=== PATIENT | male | born 1950 | race Caucasian/White ===

== ENCOUNTER 2019-12-14 07:16 | Outpatient (CLI) | payer MEDICARE, OTHER ==
[2019-12-14 09:58] LABS: Hemoglobin 13.6 g/dL (14.0-18.0); Mean Corpuscular HGB CONC 33.4 g/dL (32.0-36.0); Mean Corpuscular Hemoglobin 31.8 pg (27.0-31.0); Mean Corpuscular Volume 95.1 fL (78.0-98.0); Mean Platelet Volume 7.4 fL (7.4-10.4); Platelet Count 176 thou/uL (130-400); RBC Distribution Width 12.5 % (11.5-14.5); Red Blood Cell (RBC) Count 4.29 mill/uL (4.70-6.10); White Blood Cell (WBC) Count 4.3 thou/uL (4.8-10.8)
[2019-12-14 10:13] LABS: Bacteria/HPF 1+ HPF (None Seen); Bilirubin Negative (Negative); Blood, Urine Negative (Negative); Clarity Clear (Clear); Glucose, Urine (Dipstick) Normal (Negative); Leukocyte 75 Leu/uL (Negative); Nitrite Negative (Negative); Protein, Urine (Dipstick) Negative (Neg-Trace); RBC/HPF 0-3 HPF (0-3); Squamous Epithelial None Seen HPF (0-3); Urobilinogen Normal mg/dL (Less than 2)
[2019-12-14 10:26] LABS: Anion Gap 12 mmol/L (10-20); BUN (Urea Nitrogen) 25 mg/dL (8.4-25.7); Calc. Creatinine Clearance 0 mL/min (70-130); Calcium 9.3 mg/dL (7.8-10.44); Carbon Dioxide 26 mmol/L (23-31); Chloride 105 mmol/L (98-107); Estimated GFR-MDRD 51; Glucose 177 mg/dL (80-115); Potassium 3.7 mmol/L (3.5-5.1); Sodium 139 mmol/L (136-145)
--- NOTE | 2019-12-14 23:30 | EKG ---
Test Reason : Blood Pressure : / mmHG Vent. Rate : 067 BPM Atrial Rate : 067 BPM P-R Int : 270 ms QRS Dur : 096 ms QT Int : 390 ms P-R-T Axes : 009 032 061 degrees QTc Int : 412 ms Sinus rhythm with 1st degree A-V block Cannot rule out Inferior infarct , age undetermined Cannot rule out Anterior infarct , age undetermined Abnormal ECG When compared with ECG of 17-MAY-2012 07:44, Sinus rhythm has replaced Atrial fibrillation T wave inversion now evident in Anterior leads Confirmed by Daron GERBER ([id number]) on 12/14/2019 11:29:56 PM Referred By: SRINIVASAN Confirmed By:Daron GERBER
== END 2019-12-14 07:17 | disposition home or self-care (01) ==
LOC: LABBT 07:16
PROVIDERS: ATTEND Urology
DX: Z01.818 Encounter for other preprocedural examination (principal); T19.1XXA Foreign body in bladder, initial encounter; N21.0 Calculus in bladder
CPT/HCPCS: 80048; 81001; 85027; 87077; 87086; 87186; 93005; 93010

== ENCOUNTER 2019-12-22 05:53 | Day surgery (SDC) | payer MEDICARE, OTHER ==
[2019-12-14 09:07] VITALS: BMI 31.5
[2019-12-22] MEDS ORDERED: Midazolam HCl 2 mg/2 ml Vial ONE (06:21)
[2019-12-22] MEDS ORDERED: Fentanyl 100 MCG/2 ML VIAL ONE ×2 (06:21→06:36)
[2019-12-22] MEDS ORDERED: Levofloxacin 500 mg/D5W 100 ml Premix Bag ONE (06:34)
[2019-12-22] MEDS ORDERED: Iothalamate Meglumine 60% 50 ML VIAL FS ONE (07:39)
[2019-12-22] MEDS ORDERED: Ketorolac Tromethamine 30 MG/ML VIAL ONE (09:09)
[2019-12-22] MEDS ORDERED: Phenazopyridine HCl 97.5 MG TABLET ONE (09:09)
[2019-12-22] MEDS ORDERED: Oxybutynin 5 MG TAB ONE (09:09)
[2019-12-22] MEDS ORDERED: PHENYLEPHRINE-NS 100 MCG/ML 10 ML SYRINGE ONE (10:01)
[2019-12-22] MEDS ORDERED: PROPOFOL 200 MG/20 ML VIAL ONE (10:01)
[2019-12-22] MEDS ORDERED: Dexamethasone 20 MG/5 ML VIAL ONE (10:01)
[2019-12-22] MEDS ORDERED: Lidocaine 1% PF 5 ML VIAL ONE (10:01)
[2019-12-22] MEDS ORDERED: Ondansetron PF 4 MG/2 ML Vial ONE (10:01)
--- NOTE | 2019-12-22 13:27 | OP ---
DATE OF PROCEDURE: 12/22/2019 PREOPERATIVE DIAGNOSIS: Bladder stone forming on foreign body. POSTOPERATIVE DIAGNOSIS: Bladder stone forming on foreign body. PROCEDURES PERFORMED: Cystoscopy with laser of small bladder stone, removal of foreign body, cystogram. ANESTHESIA: General. COMPLICATIONS: None. ESTIMATED BLOOD LOSS: Minimal. SPECIMEN: Two Hem-o-celio clips from bladder. DESCRIPTION OF PROCEDURE: After informed consent, the patient was taken to the operating room, transferred to the table on his own power. Anesthesia was established. A time-out was performed showing the correct patient, site, and procedure. Preoperative antibiotics were administered. He was prepped and draped in the lithotomy position. We began by performing cystoscopy using the 22-Turkish rigid cystoscope. I noted that there was no coaptation of his urinary sphincter. I then entered the bladder neck noting the Hem-o-celio clip with stone forming on it easily visible. The bladder was systematically examined noting no mucosal abnormalities. I performed a cystogram showing about a 350 mL capacity bladder. I then used a 1000 micron laser fiber to remove the stone from the Hem-o-celio clip and to remove some of the mucosa overlying it to allow easy removal. The Hem-o-celio clip was then removed, at which point, I noted a second clip slightly medial to this one, which was also trimmed out and removed. I then used the laser to ensure hemostasis. The bladder was reinspected noting no further bleeding or evidence of foreign body. Both ureteral orifices were well away from the area of removal of foreign body. The scope was then withdrawn. The patient was awoken from anesthesia, transferred back to his hospital bed and taken to the PACU in stable condition, where he will discharge home upon recovery. Job ID: [id number]
--- NOTE | 2019-12-22 13:42 | RAD ---
EXAM: XR IVP Retrograde PROVIDED CLINICAL HISTORY: Foreign body COMPARISON: None FINDINGS/IMPRESSION: Single intraoperative fluoroscopic image of the abdomen is provided. The right abdomen and pelvis are excluded from view. There is contrast seen in a partially distended urinary bladder. No radiopaque or metallic foreign body is seen on this examination. Dense contrast is seen in the urinary bladder w hich would obscure a foreign body within the urinary bladder. Correlation with intraoperative findings is recommended. Fluoroscopy: Time-2 seconds Dose-1.77 mGy
== END 2019-12-22 10:20 | disposition home or self-care (01) ==
LOC: SDC 05:53
PROVIDERS: ATTEND Urology
PROC: 0TCB8ZZ Extirpation of Matter from Bladder, Via Natural or Artificial Opening Endoscopic (ICD-10-PCS; principal; 2019-12-22)
DX: N21.0 Calculus in bladder (principal); N32.0 Bladder-neck obstruction; I10 Essential (primary) hypertension; E78.00 Pure hypercholesterolemia, unspecified; E11.9 Type 2 diabetes mellitus without complications; N39.3 Stress incontinence (female) (male); Z79.82 Long term (current) use of aspirin; Z79.84 Long term (current) use of oral hypoglycemic drugs; Z79.899 Other long term (current) drug therapy; Z90.79 Acquired absence of other genital organ(s)
CPT/HCPCS: 74420; 88300; J1100; J1885; J1956; J2001; J2250; J2405; J2704; J3010

== ENCOUNTER 2020-01-13 09:22 | Outpatient (CLI) | payer MEDICARE, OTHER ==
[2020-01-13 12:36] LABS: Hemoglobin 12.8 g/dL (14.0-18.0); Mean Corpuscular Hemoglobin 32.2 pg (27.0-31.0); Mean Corpuscular Volume 97.6 fL (78.0-98.0); Mean Platelet Volume 7.4 fL (7.4-10.4); Platelet Count 172 thou/uL (130-400); RBC Distribution Width 12.4 % (11.5-14.5); Red Blood Cell (RBC) Count 3.99 mill/uL (4.70-6.10)
[2020-01-13 12:41] LABS: Bacteria/HPF None Seen HPF (None Seen); Bilirubin Negative (Negative); Blood, Urine Negative (Negative); Clarity Clear (Clear); Glucose, Urine (Dipstick) 500 mg/dL (Negative); Leukocyte 75 Leu/uL (Negative); Nitrite Negative (Negative); Protein, Urine (Dipstick) Negative (Neg-Trace); RBC/HPF 0-3 HPF (0-3); Squamous Epithelial 0-3 HPF (0-3); Urobilinogen Normal mg/dL (Less than 2)
[2020-01-13 12:58] LABS: Anion Gap 9 mmol/L (10-20); BUN (Urea Nitrogen) 20 mg/dL (8.4-25.7); Calc. Creatinine Clearance 0 mL/min (70-130); Calcium 8.7 mg/dL (7.8-10.44); Carbon Dioxide 28 mmol/L (23-31); Chloride 104 mmol/L (98-107); Estimated GFR-MDRD 55; Glucose 202 mg/dL (83-110); Potassium 4.1 mmol/L (3.5-5.1); Sodium 137 mmol/L (136-145)
--- NOTE | 2020-01-13 14:42 | EKG ---
Test Reason : Blood Pressure : / mmHG Vent. Rate : 064 BPM Atrial Rate : 064 BPM P-R Int : 272 ms QRS Dur : 094 ms QT Int : 410 ms P-R-T Axes : 034 026 040 degrees QTc Int : 422 ms Sinus rhythm with 1st degree A-V block Cannot rule out Inferior infarct (cited on or before 14-DEC-2019) Nonspecific ST-T changes minimal Abnormal ECG When compared with ECG of 14-DEC-2019 09:29, T wave inversion no longer evident in Anterior leads Confirmed by DR. Sabra VILLAVICENCIO ([id number]) on 01/13/2020 2:42:31 PM Referred By: SRINIVASAN Confirmed By:DR. Sabra VILLAVICENCIO
== END 2020-01-13 09:23 | disposition home or self-care (01) ==
LOC: LABBT 09:22
PROVIDERS: ATTEND Urology
DX: Z01.818 Encounter for other preprocedural examination (principal); C61 Malignant neoplasm of prostate; N39.3 Stress incontinence (female) (male)
CPT/HCPCS: 80048; 81001; 85027; 87086; 93005; 93010

== ENCOUNTER 2020-01-19 09:37 | Day surgery (SDC) | payer MEDICARE, OTHER ==
[2020-01-13 11:48] VITALS: BMI 32.3
[2020-01-19] MEDS ORDERED: Dexamethasone 20 MG/5 ML VIAL ONE (09:56)
[2020-01-19] MEDS ORDERED: Succinylcholine Chloride 20 MG/ML 10 ml SYRINGE FS ONE (09:56)
[2020-01-19] MEDS ORDERED: Ondansetron PF 4 MG/2 ML Vial ONE (09:56)
[2020-01-19] MEDS ORDERED: Esmolol 100 MG/10 ML VIAL ONE (09:56)
[2020-01-19] MEDS ORDERED: Lidocaine 1% PF 5 ML VIAL ONE (09:56)
[2020-01-19] MEDS ORDERED: PROPOFOL 200 MG/20 ML VIAL ONE (09:56)
[2020-01-19] MEDS ORDERED: Rocuronium Bromide 10 MG/ML (10ML VIAL) ONE (09:56)
[2020-01-19] MEDS ORDERED: CEFAZOLIN 2 GM in Premix Bag 1 BAG IVPB SCH (10:45)
[2020-01-19] MEDS ORDERED: Gentamicin Sulfate 300 MG in Sodium Chloride 0.9% 100 ML IVPB SCH (10:45)
[2020-01-19] MEDS ORDERED: Bacitracin Zinc Ointment 30 gm TUBE ONE (12:38)
[2020-01-19] MEDS ORDERED: Bupivacaine 0.25% HCL 30 ML VIAL ONE (12:38)
[2020-01-19] MEDS ORDERED: Midazolam HCl 2 mg/2 ml Vial ONE (12:47)
[2020-01-19] MEDS ORDERED: Fentanyl 100 MCG/2 ML VIAL ONE (12:47)
[2020-01-19] MEDS ORDERED: HYDROcodone/Acetaminophen 5/325 mg Tablet ONE (16:40)
--- NOTE | 2020-01-19 16:55 | OP ---
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 POSTOPERATIVE DIAGNOSIS: Stress urinary incontinence after prostatectomy. PROCEDURE PERFORMED: Placement of artificial urinary sphincter. ANESTHESIA: General. COMPLICATIONS: None. BLOOD LOSS: 100 mL. SPECIMEN: None. DESCRIPTION OF PROCEDURE: After informed consent, the patient was taken to the operating room and transferred to the table under his own power. Anesthesia was established. Time-out was performed showing the correct patient, site, and procedure. He was prepped and draped in the lithotomy position. A 14-Maldivian catheter was placed with 10 mL instilled in the balloon and clear urine draining. The bladder was completely drained, and then the catheter was clamped. A midline perineal incision was performed and carried down with electrocautery until the urethra with bulbospongiosus muscle was identified. The bulbospongiosus muscle was incised sharply. The urethra was dissected circumferentially. The urethra was then measured and found to be 4 cm. While the 4 cm cuff was prepared, I turned my attention to his right groin. An incision was made over the right groin, and electrocautery was used to dissect down towards the pubic symphysis, where I was then able to identify the external ring and then carefully enter the space of Retzius as the patient had previously had a prostatectomy. A small space was bluntly developed, and the reservoir was placed here. I was then able to dissect down from the groin incision into the right hemiscrotum, where a space was fashioned, and the pump was placed here. I then turned my attention back down to the perineum, which was then copiously irrigated, and the 4 cm cuff was placed around the urethra. The end of the tubing from the cuff was passed up to the groin incision. The reservoir was filled with 23 mL, and then all tubing was connected with quick connectors. The implant was cycled without issue and then locked in the open position. Both incisions were closed in several layers with Vicryl suture, and then skin was closed with Monocryl and dressed with Dermabond. Prior to closing skin, 30 mL of 0.25% Marcaine in total was injected in the tissue surrounding both incisions. The 14-Maldivian catheter was then removed. The patient was awoken from anesthesia, transferred back to his hospital bed, and taken to PACU in stable condition, where he will discharge home upon recovery. All counts were correct at the end of the case. Job ID: [id number] [id number]
== END 2020-01-19 17:25 | disposition home or self-care (01) ==
LOC: SDC 09:37
PROVIDERS: ATTEND Urology
PROC: 0T9B70Z Drainage of Bladder with Drainage Device, Via Natural or Artificial Opening (ICD-10-PCS; principal; 2020-01-19)
DX: N39.3 Stress incontinence (female) (male) (principal); E11.9 Type 2 diabetes mellitus without complications; E03.9 Hypothyroidism, unspecified; I10 Essential (primary) hypertension; J45.909 Unspecified asthma, uncomplicated; Z79.899 Other long term (current) drug therapy; Z79.84 Long term (current) use of oral hypoglycemic drugs; Z85.46 Personal history of malignant neoplasm of prostate
CPT/HCPCS: J0690; J1100; J1580; J2001; J2250; J2405; J2704; J3010; J3490; S0020

== ENCOUNTER 2021-07-21 10:55 | Inpatient (IN) | payer MEDICARE, OTHER ==
[2021-07-21] MEDS ORDERED: Piperacillin/Tazobactam 3.375 GM VIAL ONE ×2 (11:19→15:41)
[2021-07-21 11:32] LABS: Hemoglobin 12.9 g/dL (14.0-18.0); Mean Corpuscular HGB CONC 32.7 g/dL (32.0-36.0); Mean Corpuscular Hemoglobin 31.4 pg (27.0-31.0); Mean Corpuscular Volume 96.1 fL (78.0-98.0); Platelet Count 162 thou/uL (130-400); RBC Distribution Width 15.4 % (11.5-14.5); Red Blood Cell (RBC) Count 4.12 mill/uL (4.70-6.10); White Blood Cell (WBC) Count 12.5 thou/uL (4.8-10.8)
[2021-07-21 11:35] LABS: INR-International Normal Ratio 1.3; PTT 31.4 sec (22.9-36.1); Prothrombin Time 16.6 sec (12.0-14.7)
[2021-07-21 11:50] LABS: Band 19 % (5-11); Lymphocytes 24 % (21-51); MDiff Complete? YES; Monocytes 11 % (0-10); Neutrophil 46 % (42-75); Platelet Morphology Comment Appears Adequate; RBC Morphology Normal
[2021-07-21 11:51] LABS: ALT (SGPT) 18 U/L (8-55); AST (SGOT) 8 U/L (5-34); Albumin 3.2 g/dL (3.4-4.8); Alkaline Phosphatase 40 U/L (40-110); Anion Gap 21 mmol/L (10-20); BUN (Urea Nitrogen) 36 mg/dL (8.4-25.7); Bilirubin, Total 1.8 mg/dL (0.2-1.2); Calc. Creatinine Clearance 0 mL/min (70-130); Calcium 8.7 mg/dL (7.8-10.44); Carbon Dioxide 19 mmol/L (23-31); Chloride 104 mmol/L (98-107); Globulin 2.2 g/dL (2.4-3.5); Glucose 152 mg/dL (83-110); Potassium 3.1 mmol/L (3.5-5.1); Protein, Total 5.4 g/dL (5.8-8.1); Sodium 141 mmol/L (136-145)
[2021-07-21] MEDS ORDERED: Norepinephrine 8 MG/0.9% NS 250 ML ONE ×2 (12:02→17:53)
[2021-07-21 12:09] LABS: CKMB 0.7 ng/mL (0-6.6)
[2021-07-21 12:26] LABS: SARS-CoV-2 NAA Rapid Test Not Detected (NotDetected)
[2021-07-21] MEDS ORDERED: Vancomycin 1.5 GRAM/300 ML BAG 1.5 GM in Premix Bag 1 BAG IVPB SCH (12:45)
[2021-07-21] MEDS ORDERED: Hydrocortisone Sod Succ/PF 100 mg/2 ml Vial ONE (13:44)
[2021-07-21] MEDS ORDERED: Vancomycin 1 GM/200 ML BAG ONE (14:13)
[2021-07-21] MEDS ORDERED: Dextrose 50% Abboject 50 ML SYRINGE SLOW IVP PRN (14:21)
[2021-07-21] MEDS ORDERED: Electrolyte Replacement Protocol 1 EACH IVPB ONE (14:21)
[2021-07-21] MEDS ORDERED: Norepinephrine 8 MG/0.9% NS 250 ML IVPB PRN (14:21)
[2021-07-21] MEDS ORDERED: Dextrose 5% in Water 1,000 ML IV PRN (14:21)
[2021-07-21] MEDS ORDERED: Ondansetron PF 4 MG/2 ML Vial IVP PRN (14:21)
[2021-07-21] MEDS ORDERED: HumaLOG 300 UNITS/3 ML VIAL SC PRN (14:21)
[2021-07-21] MEDS ORDERED: NS 0.9% w/ 20 MEQ KCL 1,000 ML/1,000 ML BAG IV SCH (14:45)
[2021-07-21] MEDS ORDERED: Potassium Chloride 20 MEQ TAB PO SCH (14:45)
[2021-07-21 14:59] LABS: Lactic Acid 9.7 mmol/L (0.5-2.2)
[2021-07-21] MEDS ORDERED: Potassium Chloride 20 MEQ TAB ONE (15:41)
[2021-07-21] MEDS: Piperacillin/Tazobactam 3.375 GM in Sodium Chloride 0.9% 100 ML IVPB SCH (16:11)
[2021-07-21] MEDS: Lactated Ringer's 1,000 ML IV SCH (16:11)
[2021-07-21] MEDS ORDERED: Cefepime 1 GM VIAL ONE (17:22)
[2021-07-21] MEDS: Cefepime 1 GM in Sodium Chloride 0.9% 100 ML IVPB SCH (17:24)
[2021-07-21] MEDS ORDERED: Piperacillin/Tazobactam 3.375 GM in Sodium Chloride 0.9% 100 ML IVPB SCH (18:00)
[2021-07-21] MEDS ORDERED: HumaLOG 300 UNITS/3 ML VIAL ONE (18:56)
[2021-07-21] MEDS: HumaLOG 300 UNITS/3 ML VIAL SC PRN (18:58)
[2021-07-21 21:39] LABS: Lactic Acid 9.7 mmol/L (0.5-2.2)
[2021-07-21] MEDS: Simvastatin 10 MG TAB PO SCH (22:27)
[2021-07-21] MEDS: Hydrocortisone Sod Succ/PF 100 mg/2 ml Vial IVP SCH (22:30)
[2021-07-21] MEDS ORDERED: Morphine 4 MG/ML VIAL SLOW IVP SCH (22:35)
[2021-07-21] MEDS ORDERED: Morphine 4 MG/ML VIAL ONE (22:37)
[2021-07-22] MEDS: Piperacillin/Tazobactam 3.375 GM in Sodium Chloride 0.9% 100 ML IVPB SCH ×2 (00:10→06:06)
[2021-07-22] MEDS ORDERED: Melatonin 3 MG TAB PO SCH ×2 (01:45→23:00)
[2021-07-22] MEDS: Acetaminophen 325 MG TAB PO PRN ×2 (01:47→11:13)
[2021-07-22] MEDS ORDERED: Morphine 2 MG/ML VIAL SLOW IVP SCH ×2 (02:00→06:30)
[2021-07-22] MEDS: Cefepime 1 GM in Sodium Chloride 0.9% 100 ML IVPB SCH ×2 (03:29→16:14)
[2021-07-22] MEDS: Lactated Ringer's 1,000 ML IV SCH (05:24)
[2021-07-22] MEDS: Hydrocortisone Sod Succ/PF 100 mg/2 ml Vial IVP SCH ×3 (05:27→21:12)
[2021-07-22] MEDS: HumaLOG 300 UNITS/3 ML VIAL SC PRN ×2 (06:08→16:12)
[2021-07-22 07:04] LABS: Hemoglobin 12.6 g/dL (14.0-18.0); Mean Corpuscular Hemoglobin 31.6 pg (27.0-31.0); Mean Corpuscular Volume 98.7 fL (78.0-98.0); Mean Platelet Volume 7.6 fL (7.4-10.4); Platelet Count 149 thou/uL (130-400); RBC Distribution Width 15.6 % (11.5-14.5); Red Blood Cell (RBC) Count 3.98 mill/uL (4.70-6.10)
[2021-07-22 07:25] LABS: Anion Gap 19 mmol/L (10-20); BUN (Urea Nitrogen) 36 mg/dL (8.4-25.7); Calc. Creatinine Clearance 46 mL/min (70-130); Calcium 7.7 mg/dL (7.8-10.44); Carbon Dioxide 15 mmol/L (23-31); Chloride 112 mmol/L (98-107); Glucose 161 mg/dL (83-110); Potassium 3.9 mmol/L (3.5-5.1); Sodium 142 mmol/L (136-145)
[2021-07-22] MEDS: Sodium Bicarbonate 70 MEQ in Sodium Chloride 0.45% 1,000 ML IV SCH ×2 (11:13→21:12)
[2021-07-22] MEDS ORDERED: VANCOMYCIN 1.25 GM/250 ML BAG 1.25 GM in Premix Bag 1 BAG IVPB SCH (13:00)
[2021-07-22] MEDS: Simvastatin 10 MG TAB PO SCH (21:12)
[2021-07-23] MEDS: Cefepime 1 GM in Sodium Chloride 0.9% 100 ML IVPB SCH ×2 (03:30→16:04)
[2021-07-23 04:28] LABS: Band 33 % (5-11); Hypochromia SLIGHT = 6-15 cells (100X) (0-5/hpf); Lymphocytes 4 % (21-51); MDiff Complete? YES; Monocytes 9 % (0-10); Neutrophil 54 % (42-75); Platelet Morphology Comment Appears Decreased
[2021-07-23 04:29] LABS: Anion Gap 12 mmol/L (10-20); BUN (Urea Nitrogen) 37 mg/dL (8.4-25.7); Calc. Creatinine Clearance 78 mL/min (70-130); Calcium 8.4 mg/dL (7.8-10.44); Carbon Dioxide 24 mmol/L (23-31); Chloride 107 mmol/L (98-107); Glucose 130 mg/dL (83-110); Hemoglobin 11.5 g/dL (14.0-18.0); Mean Corpuscular Hemoglobin 30.7 pg (27.0-31.0); Mean Corpuscular Volume 95.9 fL (78.0-98.0); Mean Platelet Volume 7.6 fL (7.4-10.4); Platelet Count 110 thou/uL (130-400); Potassium 3.4 mmol/L (3.5-5.1); RBC Distribution Width 15.7 % (11.5-14.5); Red Blood Cell (RBC) Count 3.76 mill/uL (4.70-6.10); Sodium 140 mmol/L (136-145); White Blood Cell (WBC) Count 10.1 thou/uL (4.8-10.8)
[2021-07-23] MEDS ORDERED: Potassium Chloride 20 MEQ TAB PO SCH (04:45)
[2021-07-23] MEDS: Hydrocortisone Sod Succ/PF 100 mg/2 ml Vial IVP SCH (05:01)
[2021-07-23] MEDS: Sodium Bicarbonate 70 MEQ in Sodium Chloride 0.45% 1,000 ML IV SCH (07:53)
[2021-07-23] MEDS ORDERED: Ondansetron ODT 8 MG TAB PO PRN (11:21)
[2021-07-23 12:31] LABS: Vancomycin, Trough 7.8 ug/mL
[2021-07-23 12:44] LABS: Potassium 3.4 mmol/L (3.5-5.1)
[2021-07-23] MEDS ORDERED: VANCOMYCIN 1.75 GM/350 ML BAG 1.75 GM in Premix Bag 1 BAG IVPB SCH ×2 (13:00→15:00)
[2021-07-23] MEDS: Rivaroxaban 10 MG TAB PO SCH (16:03)
[2021-07-23] MEDS: metFORMIN 500 MG TAB PO SCH (16:03)
[2021-07-23] MEDS: glipiZIDE 5 MG TAB PO SCH (16:03)
[2021-07-23] MEDS: Melatonin 3 MG TAB PO SCH (21:16)
[2021-07-23] MEDS: Simvastatin 10 MG TAB PO SCH (21:16)
[2021-07-24] MEDS: Cefepime 1 GM in Sodium Chloride 0.9% 100 ML IVPB SCH ×2 (03:58→16:11)
[2021-07-24 06:15] VITALS: BMI 30.4
[2021-07-24 07:30] LABS: Anion Gap 12 mmol/L (10-20); BUN (Urea Nitrogen) 29 mg/dL (8.4-25.7); Calc. Creatinine Clearance 98 mL/min (70-130); Calcium 8.5 mg/dL (7.8-10.44); Carbon Dioxide 24 mmol/L (23-31); Chloride 103 mmol/L (98-107); Glucose 127 mg/dL (83-110); Potassium 3.1 mmol/L (3.5-5.1); Sodium 136 mmol/L (136-145)
[2021-07-24] MEDS ORDERED: Electrolyte Replacement Protocol 1 EACH FS SCH (08:00)
[2021-07-24] MEDS: Aspirin 81 mg Enteric Coated Tablet PO SCH (08:20)
[2021-07-24] MEDS: glipiZIDE 5 MG TAB PO SCH ×2 (08:20→16:10)
[2021-07-24] MEDS: predniSONE 20 MG TAB PO SCH (08:21)
[2021-07-24] MEDS ORDERED: Electrolyte Replacement Protocol FS PRN (08:30)
[2021-07-24] MEDS: Potassium Chloride 20 MEQ TAB PO SCH ×2 (09:06→16:10)
[2021-07-24 09:34] LABS: Hemoglobin 11.7 g/dL (14.0-18.0); MDiff Complete? YES; Mean Corpuscular HGB CONC 31.9 g/dL (32.0-36.0); Mean Corpuscular Hemoglobin 30.4 pg (27.0-31.0); Mean Corpuscular Volume 95.3 fL (78.0-98.0); Mean Platelet Volume 8.1 fL (7.4-10.4); Platelet Count 110 thou/uL (130-400); RBC Distribution Width 15.5 % (11.5-14.5); Red Blood Cell (RBC) Count 3.83 mill/uL (4.70-6.10); White Blood Cell (WBC) Count 13.7 thou/uL (4.8-10.8)
[2021-07-24 09:35] LABS: Anisocytosis SLIGHT = 6-15 cells (100X) (0-5/hpf); Band 8 % (5-11); Lymphocytes 2 % (21-51); Monocytes 7 % (0-10); Neutrophil 83 % (42-75); Platelet Morphology Comment Appears Decreased
[2021-07-24 09:44] LABS: Magnesium 2.3 mg/dL (1.6-2.6)
[2021-07-24 14:17] LABS: Vancomycin, Trough 10.3 ug/mL
[2021-07-24] MEDS: Rivaroxaban 10 MG TAB PO SCH (16:10)
[2021-07-24] MEDS: metFORMIN 500 MG TAB PO SCH (16:10)
[2021-07-24] MEDS: Melatonin 3 MG TAB PO SCH (21:48)
[2021-07-24] MEDS: Simvastatin 10 MG TAB PO SCH (21:48)
[2021-07-25 03:18] LABS: Band 8 % (5-11); Hemoglobin 12.4 g/dL (14.0-18.0); Hypochromia SLIGHT = 6-15 cells (100X) (0-5/hpf); Lymphocytes 11 % (21-51); MDiff Complete? YES; Mean Corpuscular HGB CONC 32.8 g/dL (32.0-36.0); Mean Corpuscular Hemoglobin 31.4 pg (27.0-31.0); Mean Corpuscular Volume 95.7 fL (78.0-98.0); Mean Platelet Volume 7.7 fL (7.4-10.4); Monocytes 10 % (0-10); Neutrophil 71 % (42-75); Platelet Count 93 thou/uL (130-400); Platelet Morphology Comment Appears Decreased; RBC Distribution Width 15.7 % (11.5-14.5); Red Blood Cell (RBC) Count 3.93 mill/uL (4.70-6.10)
[2021-07-25 03:46] LABS: Anion Gap 12 mmol/L (10-20); BUN (Urea Nitrogen) 23 mg/dL (8.4-25.7); Calc. Creatinine Clearance 123 mL/min (70-130); Calcium 8.8 mg/dL (7.8-10.44); Carbon Dioxide 21 mmol/L (23-31); Chloride 107 mmol/L (98-107); Glucose 92 mg/dL (83-110); Potassium 3.9 mmol/L (3.5-5.1); Sodium 136 mmol/L (136-145)
[2021-07-25] MEDS: Cefepime 1 GM in Sodium Chloride 0.9% 100 ML IVPB SCH ×2 (04:53→16:17)
[2021-07-25] MEDS: Aspirin 81 mg Enteric Coated Tablet PO SCH (08:38)
[2021-07-25] MEDS: glipiZIDE 5 MG TAB PO SCH ×2 (08:38→16:16)
[2021-07-25] MEDS: predniSONE 20 MG TAB PO SCH (08:38)
[2021-07-25] MEDS: Acetaminophen 325 MG TAB PO PRN (10:38)
[2021-07-25] MEDS ORDERED: predniSONE 20 MG TAB PO SCH (12:00)
[2021-07-25] MEDS: Rivaroxaban 10 MG TAB PO SCH (16:16)
[2021-07-25] MEDS: metFORMIN 500 MG TAB PO SCH (16:16)
[2021-07-25] MEDS: Simvastatin 10 MG TAB PO SCH (20:08)
[2021-07-25] MEDS: Melatonin 3 MG TAB PO SCH (20:08)
[2021-07-26] MEDS ORDERED: hydrOXYzine 10 MG TAB PO PRN (02:52)
[2021-07-26] MEDS: Cefepime 1 GM in Sodium Chloride 0.9% 100 ML IVPB SCH (03:23)
[2021-07-26 06:52] LABS: Hemoglobin 11.5 g/dL (14.0-18.0); Mean Corpuscular HGB CONC 32.3 g/dL (32.0-36.0); Mean Platelet Volume 8.2 fL (7.4-10.4); Platelet Count 113 thou/uL (130-400); RBC Distribution Width 15.8 % (11.5-14.5); White Blood Cell (WBC) Count 9.3 thou/uL (4.8-10.8)
[2021-07-26 07:06] LABS: Anion Gap 11 mmol/L (10-20); BUN (Urea Nitrogen) 21 mg/dL (8.4-25.7); Calc. Creatinine Clearance 112 mL/min (70-130); Calcium 8.7 mg/dL (7.8-10.44); Carbon Dioxide 26 mmol/L (23-31); Chloride 103 mmol/L (98-107); Glucose 158 mg/dL (83-110); Potassium 3.8 mmol/L (3.5-5.1); Sodium 136 mmol/L (136-145)
[2021-07-26 07:44] LABS: Band 14 % (5-11); Lymphocytes 10 % (21-51); MDiff Complete? YES; Monocytes 1 % (0-10); Neutrophil 74 % (42-75); Platelet Morphology Comment Appears Decreased; Polychromasia SLIGHT = 2-3 cells (100X) (0-2/hpf); Reactive Lymphocytes 1 % (0-10)
[2021-07-26 08:29] VITALS: BP 122/80; TEMP 98.3
[2021-07-26] MEDS ORDERED: predniSONE 20 MG TAB PO SCH (09:00)
[2021-07-26] MEDS: Aspirin 81 mg Enteric Coated Tablet PO SCH (09:29)
[2021-07-26] MEDS: glipiZIDE 5 MG TAB PO SCH (09:29)
== END 2021-07-26 12:46 | disposition home or self-care (01) | DRG 871 ==
LOC: ERS 10:55 → ERHOLD 13:59 → CCU 21:56 → T4-A 07-23 15:08
PROVIDERS: ADMIT Family Medicine; ATTEND Internal Medicine
PROC: 5A09457 Assistance with Respiratory Ventilation, 24-96 Consecutive Hours, Continuous Positive Airway Pressure (ICD-10-PCS; principal; 2021-07-21)
PROC: 3E033XZ Introduction of Vasopressor into Peripheral Vein, Percutaneous Approach (ICD-10-PCS; 2021-07-21)
DX: A41.9 Sepsis, unspecified organism (principal); R65.21 Severe sepsis with septic shock; J18.9 Pneumonia, unspecified organism; J96.01 Acute respiratory failure with hypoxia; N17.9 Acute kidney failure, unspecified; I10 Essential (primary) hypertension; M35.3 Polymyalgia rheumatica; I48.91 Unspecified atrial fibrillation; E11.9 Type 2 diabetes mellitus without complications; E78.5 Hyperlipidemia, unspecified; K21.9 Gastro-esophageal reflux disease without esophagitis; J45.909 Unspecified asthma, uncomplicated; E87.6 Hypokalemia; R19.7 Diarrhea, unspecified; Z20.822 Contact with and (suspected) exposure to COVID-19; Z79.82 Long term (current) use of aspirin; Z79.84 Long term (current) use of oral hypoglycemic drugs; Z79.01 Long term (current) use of anticoagulants; Z79.899 Other long term (current) drug therapy; Z85.46 Personal history of malignant neoplasm of prostate; Z90.79 Acquired absence of other genital organ(s); Z86.718 Personal history of other venous thrombosis and embolism; Z86.711 Personal history of pulmonary embolism; Z87.891 Personal history of nicotine dependence
CPT/HCPCS: 0240U; 36415; 36416; 36556; 70450; 71045; 71250; 74177; 80048; 80053; 80202; 82553; 83605; 83735; 84443; 84484; 85025; 85027; 85610; 85730; 87040; 87045; 87046; 87324; 87427; 87449; 93005; 94640; 94660; 94760; 96365; 96366; 96367; 96375; 99292; J0692; J1720; J1815; J2270; J2543; J3370; J3490; J7120; J7512; J7620

== ENCOUNTER 2021-07-28 10:05 | Emergency (ER) | payer MEDICARE, OTHER ==
[2021-07-28 11:21] LABS: Anion Gap 14 mmol/L (10-20); BUN (Urea Nitrogen) 24 mg/dL (8.4-25.7); Calc. Creatinine Clearance 0 mL/min (70-130); Carbon Dioxide 24 mmol/L (23-31); Chloride 100 mmol/L (98-107); Potassium 3.9 mmol/L (3.5-5.1); Sodium 134 mmol/L (136-145)
[2021-07-28 11:22] LABS: ALT (SGPT) 14 U/L (8-55); AST (SGOT) 14 U/L (5-34); Albumin 2.6 g/dL (3.4-4.8); Alkaline Phosphatase 68 U/L (40-110); Bilirubin, Total 1.4 mg/dL (0.2-1.2); Calcium 8.4 mg/dL (7.8-10.44); Globulin 2.9 g/dL (2.4-3.5); Glucose 133 mg/dL (83-110); Protein, Total 5.5 g/dL (5.8-8.1)
[2021-07-28 11:34] LABS: Hemoglobin 12.4 g/dL (14.0-18.0); Mean Corpuscular HGB CONC 31.9 g/dL (32.0-36.0); Mean Corpuscular Hemoglobin 30.7 pg (27.0-31.0); Mean Corpuscular Volume 96.4 fL (78.0-98.0); Mean Platelet Volume 8.3 fL (7.4-10.4); Platelet Count 221 thou/uL (130-400); RBC Distribution Width 16.2 % (11.5-14.5); Red Blood Cell (RBC) Count 4.02 mill/uL (4.70-6.10); White Blood Cell (WBC) Count 14.4 thou/uL (4.8-10.8)
[2021-07-28 11:37] LABS: Band 7 % (5-11); Lymphocytes 11 % (21-51); MDiff Complete? YES; Myelocyte 1 % (0-0); Neutrophil 76 % (42-75); Platelet Morphology Comment Appears Adequate; Polychromasia SLIGHT = 2-3 cells (100X) (0-2/hpf); Reactive Lymphocytes 5 % (0-10)
== END 2021-07-28 13:53 | disposition home or self-care (01) ==
LOC: ERS 10:05
DX: R60.0 Localized edema (principal); E11.9 Type 2 diabetes mellitus without complications; I10 Essential (primary) hypertension; E78.5 Hyperlipidemia, unspecified; Z79.82 Long term (current) use of aspirin; Z79.84 Long term (current) use of oral hypoglycemic drugs; Z79.899 Other long term (current) drug therapy
CPT/HCPCS: 36415; 71045; 80053; 83880; 84484; 85025; 93005

== ENCOUNTER 2021-08-28 07:35 | Outpatient (CLI) | payer MEDICARE, OTHER | END 2021-08-28 07:36 | disposition home or self-care (01) | LOC: BICRAD 07:35 | PROVIDERS: ATTEND Internal Medicine Critical Care Medicine | DX: R06.00 Dyspnea, unspecified (principal); J90 Pleural effusion, not elsewhere classified; R91.8 Other nonspecific abnormal finding of lung field | CPT/HCPCS: 71046 ==

== ENCOUNTER 2021-12-01 08:58 | Outpatient (CLI) | payer MEDICARE, OTHER ==
[2021-12-01] MEDS ORDERED: Iopamidol-370 76% 500 ML 1 ML ONE (14:33)
== END 2021-12-01 08:59 | disposition home or self-care (01) ==
LOC: BICCT 08:58
PROVIDERS: ATTEND Internal Medicine Critical Care Medicine
DX: J98.4 Other disorders of lung (principal); E27.8 Other specified disorders of adrenal gland; N28.1 Cyst of kidney, acquired
CPT/HCPCS: 71260; 82565; Q9967

== ENCOUNTER 2023-08-27 06:10 | Emergency (ER) | payer MEDICARE, OTHER ==
[2023-08-27] MEDS ORDERED: Acetaminophen 500 MG TAB ONE (06:54)
[2023-08-27] MEDS ORDERED: Boostrix 0.5 ML (Tdap) VIAL (>/=7 yrs of age) ONE (07:26)
[2023-08-27 07:36] LABS: #Monocytes 0.6 thou/uL (0.11-0.59); #Neutrophils 4.5 thou/uL (1.40-6.50); %Basophils 0.4 % (0.0-1.0); %Eosinophils 0.2 % (0.0-10.0); %Lymphocytes 8.2 % (21.0-51.0); %Monocytes 9.8 % (0.0-10.0); %Neutrophils 80.5 % (42.0-75.0); Hemoglobin 13.1 g/dL (14.0-18.0); Mean Corpuscular HGB CONC 32.8 g/dL (32.0-36.0); Mean Corpuscular Hemoglobin 31.7 pg (27.0-31.0); Mean Corpuscular Volume 96.9 fl (78.0-98.0); Mean Platelet Volume 10.1 fL (7.4-10.4); Platelet Count 167 10x3/uL (130-400); RBC Distribution Width 13.4 % (11.5-14.5); Red Blood Cell (RBC) Count 4.13 mill/uL (4.70-6.10); White Blood Cell (WBC) Count 5.6 10x3/uL (4.8-10.8)
[2023-08-27 07:45] LABS: Bacteria/HPF None Seen HPF (None Seen); Bilirubin Negative (Negative); Blood, Urine Trace (Negative); CAUTI Indications for Culture Dysuria,urgency,freq; Clarity Clear (Clear); Glucose, Urine (Dipstick) Greater than 1000 mg/dL (Negative); Ketone, Urine 10 mg/dL (Negative); Leukocyte Negative Leu/uL (Negative); Nitrite Negative (Negative); Protein, Urine (Dipstick) Negative (Neg-Trace); RBC/HPF 0-3 HPF (0-3); Specific Gravity, Urine 1.019 (1.002-1.036); Squamous Epithelial 0-3 HPF (0-3); Urobilinogen Normal mg/dL (Less than 2); WBC/HPF 0-3 HPF (0-3)
[2023-08-27 07:47] LABS: Urine Culture Reflex No No
[2023-08-27 07:51] LABS: Amphetamine Not Detected (NotDetected); Barbiturates Screen Not Detected (NotDetected); Benzodiazepine Screen Not Detected (NotDetected); Cocaine Metabolite Screen Not Detected (NotDetected); Methadone Not Detected (NotDetected); Methamphetamine Not Detected (NotDetected); Opiate Screen Not Detected (NotDetected); Oxycodone Screen Not Detected (NotDetected); Phencyclidine (PCP) Not Detected (NotDetected); THC/Cannabinoid Screen Not Detected (NotDetected); Tricyclic Screen Not Detected (NotDetected)
[2023-08-27 08:00] LABS: ALT (SGPT) 47 U/L (8-55); AST (SGOT) 25 U/L (5-34); Albumin 4.2 g/dL (3.4-4.8); Alkaline Phosphatase 80 U/L (40-110); Anion Gap 14 mmol/L (10-20); BUN (Urea Nitrogen) 17 mg/dL (8.4-25.7); Bilirubin, Total 1.3 mg/dL (0.2-1.2); Calc. Creatinine Clearance 0 mL/min (70-130); Calcium 9.6 mg/dL (7.8-10.44); Carbon Dioxide 27 mmol/L (23-31); Chloride 102 mmol/L (98-107); Estimated GFR 55; Globulin 3.2 g/dL (2.4-3.5); Glucose 242 mg/dL (83-110); Potassium 4.5 mmol/L (3.5-5.1); Protein, Total 7.4 g/dL (5.8-8.1); Sodium 138 mmol/L (136-145)
[2023-08-27 08:01] LABS: Acetaminophen Less than 10 mcg/mL (10.0-30.0); Alcohol Less than 10.0 mg/dL (Less than 10); CK (CPK) 121 U/L (30-200); Lipase 57 U/L (8-78); Magnesium 1.9 mg/dL (1.6-2.6); Salicylate Less than 8.0 mg/dL (15.0-30.0)
[2023-08-27] MEDS ORDERED: Iopamidol-370 76% 500 ML MDV (1 ML CHARGE) ONE (12:02)
[2023-08-27] MEDS ORDERED: Ibuprofen 800 MG TAB ONE (15:39)
== END 2023-08-27 17:04 ==
LOC: ERS 06:10
DX: M62.81 Muscle weakness (generalized) (principal); E11.9 Type 2 diabetes mellitus without complications; I10 Essential (primary) hypertension; E78.5 Hyperlipidemia, unspecified; Z23 Encounter for immunization; Z79.82 Long term (current) use of aspirin; Z79.84 Long term (current) use of oral hypoglycemic drugs; Z79.899 Other long term (current) drug therapy
CPT/HCPCS: 36415; 70450; 71045; 72125; 74177; 80053; 80306; 80307; 81001; 82550; 83690; 83735; 83880; 84484; 85025; 90471; 90715; 93005; 96360; 96361; Q9967